=== PATIENT | male | born 1980 ===

== ENCOUNTER → 2021-08-18 12:05 | Outpatient (CLI) | payer OTHER, SELFPAY | PROVIDERS: PCP Physician Assistant Medical; Referring Provider Nurse Practitioner Family; Visit Provider Nurse Practitioner Family | DX: Z20.822 Contact with and (suspected) exposure to COVID-19 (principal) | CPT/HCPCS: 87635 ==

== ENCOUNTER 2021-08-19 13:28 | Day surgery (SDC) | payer OTHER, SELFPAY ==
--- NOTE | 2021-08-19 | PATH_ITS ---
[facility] Accession Number: [id number] . 01 Material submitted: . PART A: colon - RANDOM RIGHT COLON PART B: colon - RANDOM TRANSVERSE COLON PART C: colon - RANDOM LEFT COLON PART D: rectum - RANDOM RECTAL COLON . 02 Diagnosis: A-C: Right Colon, Transverse Colon, Left Colon, Biopsies: Colonic mucosa with no significant diagnostic abnormality. Negative for active inflammation, granulomas, dysplasia, and malignancy. . D. Rectum, Random Biopsies: Severely active colitis with erosions and distortion of the crypt architecture. Please see comment. Negative for granulomas, dysplasia and malignancy. [facility] 08/21/2021 1456 Local . 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 There are associated features of chronic inflammation, including increased lymphocytes and plasma cells in the lamina propria, branched crypt architecture and shortened crypt length. No obvious viral cytopathic effects or parasitic organisms are identified. The morphologic appearance could be compatible with the provided clinical diagnosis of Crohn's disease if infection and medication-related mucosal injury are excluded. An immunohistochemical stain for CMV will be performed and the results reported as an addendum. . 02 Electronically signed: . Mis Jarvis MD, Pathologist NPI- [id number] . 01 Gross description: . Part A: RANDOM RIGHT COLON: Received in formalin are 2 fragment(s) of davis, soft tissue measuring 0.3 x 0.3 x 0.2 cm to 0.3 x 0.3 x 0.1 cm submitted entirely in 1 cassette(s) Part B: RANDOM TRANSVERSE COLON: Received in formalin are 4 fragment(s) of davis, soft tissue measuring 0.5 x 0.2 x 0.1 cm to 0.2 x 0.2 x 0.1 cm submitted entirely in 1 cassette(s) Part C: RANDOM LEFT COLON: Received in formalin are 3 fragment(s) of davis, soft tissue measuring 0.3 x 0.3 x 0.2 cm to 0.2 x 0.2 x 0.1 cm submitted entirely in 1 cassette(s) Part D: RANDOM RECTAL COLON: Received in formalin are 4 fragment(s) of davis, soft tissue measuring 0.4 x 0.2 x 0.1 cm to 0.2 x 0.2 x 0.1 cm submitted entirely in 1 cassette(s) /QEN 08/20/[address] [place] [address] . 02 Pathologist provided ICD-10: K50.10 . 02 CPT . 240646, [id number], [id number], 704248, [id number] Performed at: 01 [facility] [address] [id number] MD David Mahoney MD Phone: [phone] Performed at: 02 [facility] [address] [place], [place] [id number] MD Mis Jarvis MD Phone: [phone]
[2021-08-19 13:50] VITALS: BP 130/53; PULSE 64; RESP 18; TEMP 36.6; O2SAT 100
[2021-08-19 13:51] VITALS: BMI 25.5
[2021-08-19] MEDS: SODIUM CHLORIDE 0.9% 1,000 ML 84 ML IV (14:00)
--- NOTE | 2021-08-19 14:30 | PM.HP.1 ---
History of Present Illness History of Present Illness Date Patient Seen: 08/19/21 Chief complaint: DX COLONOSCOPY Narrative: Crohn's colitis Patient History Medical History Crohn disease GERD (gastroesophageal reflux disease) Family & Social History Social History: household members spouse Tobacco & Substance use: Smoking Status Never smoker alcohol intake current alcohol intake frequency a few times a week Substance Use Type does not use Meds Home Medications and Allergies Home Medications Medication Instructions Recorded Confirmed Type adalimumab 40 mg/0.8 mL 40 mg SUBCUT Q2W 08/18/21 08/18/21 History subcutaneous pen kit (Humira Pen) Allergies Allergy/AdvReac Type Severity Reaction Status Date / Time Sulfa (Sulfonamide Allergy Severe Rash Verified 08/19/21 13:48 Antibiotics) Exam Vital Signs (past 8 hours): - 08/19/21 13:50 Temperature 97.9 F Pulse Rate 64 Respiratory Rate 18 Blood Pressure 130/53 L Pulse Oximetry 100 Oxygen Delivery Method Room Air Narrative Exam Narrative: Oropharynx free of lesions Chest clear to auscultation percussion Cardiac exam reveals no S3 or murmur Assessment & Plan Assessment & Plan narrative: History of Crohn's colitis of longstanding need for follow-up colonoscopy and biopsy. Risks, benefits, alternatives have been explained. Of note is the patient feels is under control at this time on Humira alone with 1 bowel movement daily Time Spent With Patient Critical Care time: I spent a total of [] minutes of critical care time on this patient's care today; this time is exclusive of procedural time.
--- NOTE | 2021-08-19 14:31 | PM.OP.COLON ---
Operative Date/Time/Diagnoses Date of procedure: 08/19/21 Pre-op diagnosis: See indication and findings Procedure & Clinicians Study performed: Colonoscopy with biopsy Indications: Crohn's colitis Procedure Notes Procedure in detail: After informed consent was obtained the patient was placed in left lateral decubitus position. The video colonoscope was introduced the rectum slowly advanced cecum. Preparation was good. On slow withdrawal mucosa was carefully examined. The scope was removed. The patient understood well. Blood loss none Complications none Sedation mac Findings 1. Moderately severe proctitis with the 1st 3-4 cm of the rectum to write down to the anal verge. This included shallow serpiginous ulcerations on the background of erythema with no vascular pattern. Biopsies were taken 2. Otherwise negative colonoscopy to cecum. Two biopsies every 10 cm were taken in the right, transverse, and left colon. All other Flaco's symptoms are under control except for occasional blood. Will have a discussion about whether use any per rectal medication or just keep him on his Humira.
[2021-08-19 14:58] VITALS: BP 100/64; RESP 63; TEMP 36.1; O2SAT 100
[2021-08-19 15:03] VITALS: BP 101/58; PULSE 63; RESP 17; O2SAT 98
[2021-08-19 15:08] VITALS: BP 115/68; PULSE 67; RESP 16; O2SAT 99
[2021-08-19 15:23] VITALS: BP 126/68; PULSE 60; RESP 16; O2SAT 99
[2021-08-19 15:26] VITALS: BP 125/67; PULSE 60; RESP 15; TEMP 36.6; O2SAT 99
== END 2021-08-19 15:55 | disposition home or self-care (01) ==
PROVIDERS: PCP Nurse Practitioner Family; Referring Provider Internal Medicine Gastroenterology; Visit Provider Internal Medicine Gastroenterology
PROC: 0DJD8ZZ Inspection of Lower Intestinal Tract, Via Natural or Artificial Opening Endoscopic (ICD-10-PCS; CPT 45378; principal; 2021-08-19 15:00)
DX: K50.10 Crohn's disease of large intestine without complications (principal); K21.9 Gastro-esophageal reflux disease without esophagitis; K62.89 Other specified diseases of anus and rectum
CPT/HCPCS: 45380; J2704